=== PATIENT | female | born 1980 | race Caucasian/White ===

== ENCOUNTER 2024-09-18 09:07 | Emergency (ER) | payer BC ==
[~2024-09-18] VITALS: Ht 165.1 cm; Wt 99.8 kg
[~2024-09-18 09:07] MED LIST: AMLO5 PO; ATORVASTATIN CA10 M1 PO; BUPROPION XL150 M1 PO; CHLO25B PO; Calcium Carbon500 MG PO; FURO40 PO; HUMALOG KW100 UNIT/1 SC; LOSARTAN POTAS100 M1 PO; MAG-OXIDE MAGN200 MG PO; METF500 PO; PANT20 PO; SEMGLEE (Y100 UNIT/2 SC
[2024-09-18] MEDS ORDERED: EZETIMIBE10 M6 PO (10:09)
[2024-09-18] MEDS ORDERED: FENO54 PO (10:10)
[2024-09-18] MEDS ORDERED: Acetaminophen 500 MG Tab PO ONE (10:15)
[2024-09-18] MEDS ORDERED: Ketorolac Tromethamine 30mg Vial IM ONE (10:15)
[2024-09-18] MEDS ORDERED: Methocarbamol 500 MG Tab PO ONE (10:15)
[2024-09-18] MEDS ORDERED: Methyl Salicylate/Menth/Camph 57 GM TUBE TOP ONE (10:15)
[2024-09-18 11:25] VITALS: BP 167/84
[2024-09-18] MEDS ORDERED: Robaxin750 MG PO ×2 (12:01→12:12)
== END 2024-09-18 12:11 | disposition home or self-care (01) ==
LOC: ER 09:07
DX: S46.812A Strain of other muscles, fascia and tendons at shoulder and upper arm level, left arm, initial encounter (principal); N62 Hypertrophy of breast; X58.XXXA Exposure to other specified factors, initial encounter; K21.9 Gastro-esophageal reflux disease without esophagitis; I10 Essential (primary) hypertension; E11.9 Type 2 diabetes mellitus without complications; Z88.0 Allergy status to penicillin; Z88.9 Allergy status to unspecified drugs, medicaments and biological substances; Z79.899 Other long term (current) drug therapy; Z79.891 Long term (current) use of opiate analgesic; Z79.890 Hormone replacement therapy; Z79.51 Long term (current) use of inhaled steroids; Z79.52 Long term (current) use of systemic steroids; Z79.1 Long term (current) use of non-steroidal anti-inflammatories (NSAID); Z79.83 Long term (current) use of bisphosphonates
CPT/HCPCS: 72040; 73030; 96372; 99283-25; A9270; J1885